=== PATIENT | male | born 1960 | race Caucasian/White ===

== ENCOUNTER 2022-01-19 10:31 | Inpatient (IN) | payer MEDICAID ==
[2022-01-12 11:51] LABS: BASOPHILS % (AUTO) 0.1 % (0-1); EOSINOPHILS % (AUTO) 0 % (0-6); LYMPHOCYTES # (AUTO) 1.4 X10'3 (1.1-4.8); LYMPHOCYTES % (AUTO) 23.6 % (21-51); MEAN CORPUSCULAR HGB CONC 32.6 g/dL (33.0-36.5); MEAN CORPUSCULAR VOLUME 76.8 FL (78-98); MEAN PLATELET VOLUME 8.2 FL (7.4-10.4); MONOCYTES # (AUTO) 0.6 X10'3 (0-0.9); NEUTROPHILS % (AUTO) 66.3 % (42-75); PRE OP HEMATOCRIT 41.6 % (42.0-52.0); PRE OP HEMOGLOBIN 13.5 g/dL (14.0-17.9); PRE OP PLATELET COUNT 260 X10'3 (140-440); RED BLOOD COUNT 5.42 X10'6 (4.70-6.10); RED CELL DISTRIBUTION WIDTH 15.5 % (11.5-14.5)
[2022-01-12 12:07] LABS: ALBUMIN/GLOBULIN RATIO 1.2 (1.1-1.5); ALKALINE PHOSPHATASE 76 IU/L (46-116); BLOOD UREA NITROGEN 12 MG/DL (7-18); BUN/CREATININE RATIO 12.6 (5.4-32.0); CHLORIDE 103 MMOL/L (99-107); CREATININE 0.95 MG/DL (0.60-1.10); PRE OP ALT 27 U/L (30-65); PRE OP ANION GAP 8 (8-16); PRE OP AST 17 U/L (10-37); PRE OP BILIRUB, TOTAL 0.5 MG/DL (0.0-1.0); PRE OP GLUCOSE 102 MG/DL (70-104); PRE OP POTASSIUM 4.2 MMOL/L (3.4-5.1); PRE OP SODIUM 138 MMOL/L (135-145); TOTAL PROTEIN 7.4 G/DL (6.4-8.2); eGFR 81 ML/MIN
[~2022-01-19] VITALS: Ht 180.3 cm; Wt 125.5 kg
[~2022-01-19 10:31] MED LIST: 5-HY100C PO; ASCO100089 PO; ASPI1POW35 PO; GABA PO; HYDR-3686 PO; KRATOM; LORA10TA7 PO; MONT10TA21 PO; THRE500T PO; TRAM50TA2 PO; TURM500C4 PO; ZINC COMPLEX PO; [UNRECOGNIZED DRUG - OTHER]
[2022-01-28 11:49] LABS: BASOPHILS % (AUTO) 0 % (0-1); EOSINOPHILS % (AUTO) 0 % (0-6); LYMPHOCYTES # (AUTO) 1.4 X10'3 (1.1-4.8); MEAN CORPUSCULAR HEMOGLOBIN 26.1 PG (27.0-31.0); MEAN CORPUSCULAR HGB CONC 33.1 g/dL (33.0-36.5); MEAN CORPUSCULAR VOLUME 78.8 FL (78-98); MEAN PLATELET VOLUME 8.3 FL (7.4-10.4); MONOCYTES # (AUTO) 0.5 X10'3 (0-0.9); MONOCYTES % (AUTO) 7.8 % (2-12); NEUTROPHILS # (AUTO) 4.7 X10'3 (1.8-7.7); NEUTROPHILS % (AUTO) 71.2 % (42-75); PRE OP HEMATOCRIT 44.8 % (42.0-52.0); PRE OP HEMOGLOBIN 14.8 g/dL (14.0-17.9); PRE OP PLATELET COUNT 248 X10'3 (140-440); RED BLOOD COUNT 5.68 X10'6 (4.70-6.10); RED CELL DISTRIBUTION WIDTH 16.5 % (11.5-14.5)
[2022-01-28 11:59] LABS: ALBUMIN 4.1 G/DL (3.4-5.0); ALBUMIN/GLOBULIN RATIO 1.2 (1.1-1.5); ALKALINE PHOSPHATASE 77 IU/L (46-116); BLOOD UREA NITROGEN 12 MG/DL (7-18); BUN/CREATININE RATIO 12.2 (5.4-32.0); CHLORIDE 105 MMOL/L (99-107); CREATININE 0.98 MG/DL (0.60-1.10); PRE OP ALT 20 U/L (30-65); PRE OP ANION GAP 5 (8-16); PRE OP AST 13 U/L (10-37); PRE OP BILIRUB, TOTAL 0.5 MG/DL (0.0-1.0); PRE OP GLUCOSE 102 MG/DL (70-104); PRE OP POTASSIUM 4.3 MMOL/L (3.4-5.1); PRE OP SODIUM 141 MMOL/L (135-145); TOTAL CARBON DIOXIDE 30.8 MMOL/L (24-32); TOTAL PROTEIN 7.6 G/DL (6.4-8.2); eGFR 78 ML/MIN
[2022-02-01] MEDS ORDERED: DICL20GE TOP (10:47)
[2022-02-01] MEDS ORDERED: ACET-2778 PO (10:47)
[2022-02-01] MEDS ORDERED: BIOT1TAB PO (10:53)
[2022-02-01] MEDS ORDERED: CYAN25006 SL (10:55)
[2022-02-02] VITALS (21 sets, daily range): BP systolic 113–155; BP diastolic 55–93
[2022-02-02] MEDS ORDERED: ringers solution, lacted 1,000 ML IV SCH ×2 (05:00→08:05)
[2022-02-02] MEDS ORDERED: vancomycin 1,500 MG in NS 300ml IV soln IV ONE (05:30)
[2022-02-02] MEDS ORDERED: ceFAZolin inj. 3,000 MG in normal saline 100ml IV soln 100 ML IV ONE (05:30)
[2022-02-02] MEDS ORDERED: tranexamic acid inj. 1,000 MG in 0.7% saline 100 ML PMX IV ONE (05:30)
[2022-02-02] MEDS ORDERED: famotidine 20mg tablet PO ONE (05:30)
--- NOTE | 2022-02-02 06:00 | NUR ---
PATIENT PREPPED FOR SURGERY, IV STARTED WITHOUT DIFFICULTY. SPECIAL PAPER FROM BLOOD BANK PLACED IN CHART IN REFERENCE TO PTS ANTIBODIES. ANESTHESIA AND NURSE NOTIFIED. PT ARRIVED IN A WHEELCHAIR, AMBULATED TO STRETCHER WITH DIFFICULTY. HE STATES PAIN IS SEVERE 8 ON 1-10 SCALE WITH MOVEMENT, WHEN HE IS LYING IN BED AND NOT MOVING PAIN IS GONE. PT TAKES MULTIPLE SUPPLEMENTS, HAS STOPPED FOR ONE WEEK PRIOR TO SURGERY. BILATERAL LOWER EXTREMITIES ARE PINK WARM AND DRY, BILATERAL PEDAL PULSES ARE PALPABLE AND MARKED, SENSATION IS INTACT IN BOTH LEGS. PT STATES HE USED THE SPECIAL SOAP TO SHOWER WITH FOR 5 DAYS, HE AND HIS USED THE MURPUROCIN OINTMENT IN THEIR NOSES FOR THE PAST 5 DAYS. PT STATES HE DID NOT WATCH THE CVC BECAUSE HE HAS HIS LEFT HIP DONE AND KNOWS WHAT WILL HAPPEN. REITERATED THE IMPORTANCE OF WATCHING IT AFTER HE GETS HOME. PT INSTRUCTED IN USING THE INCENTIVE SPIROMETRY AND WAS ABLE TO RETURN DEMONSTRATE THE TECHNIQUE. PT IS VERY ANXIOUS, IS AT BEDSIDE VANCOMYCIN INFUSING WITH NO SIGNS OF REACTIONS.
[2022-02-02] MEDS ORDERED: vancomycin 1,000mg inj ONE (07:09)
[2022-02-02] MEDS ORDERED: tetracaine 1% (10mg/ml) pres. free inj. ONE (07:40)
[2022-02-02] MEDS ORDERED: fentaNYL/PF 50MCG/1 ML 2ML syringe ONE (07:44)
[2022-02-02] MEDS ORDERED: MIDAZolam 1 MG/ML 5ML VIAL ONE (07:44)
[2022-02-02] MEDS ORDERED: propofol inj 20 ML IV ONE ×2 (07:48)
[2022-02-02] MEDS ORDERED: ketorolac trometh. 30mg/ml inj. ONE (07:54)
[2022-02-02] MEDS ORDERED: cloNIDine hcl/PF 100mcg/ml inj ONE (07:54)
[2022-02-02] MEDS ORDERED: ROPIVAcaine 0.5% (5mg/ml) 30ml vial ONE (07:54)
[2022-02-02] MEDS ORDERED: epiNEPHrine 1 mg/ml inj ONE (07:54)
[2022-02-02] MEDS ORDERED: morphine 2 MG/ML inj. syringe IV PRN ×2 (08:05→14:50)
[2022-02-02] MEDS ORDERED: ondansetron/PF 4mg/2ml inj IV PRN ×2 (08:05→11:50)
[2022-02-02] MEDS ORDERED: meperidine/PF 25mg/ml syringe IV PRN ×3 (08:05)
[2022-02-02] MEDS ORDERED: proCHLORperazine 10 MG/2 ml inj IV PRN (08:05)
[2022-02-02] MEDS ORDERED: morphine 4 MG/ML inj SYRINge IV PRN (08:05)
--- NOTE | 2022-02-02 11:16 | NUR ---
Received from OR via SURGICAL BED /S [facility] , accompanied by Anesthesiologist NICOLETTE and report given by Anesthesiolgist. PATIENT WITH 18G PIV IN RIGHT HAND RUNNING LR AT 100. DENIES PAIN, SENSATION LEVEL AT T9 AT THIS TIME. + DORSALIS PEDIS PRESENT. PATIENT WITH SCDS BILATERALLY. VSS. DEZ LIU FOR COMFORT. Addendum: 02/02/22 at 1127 by Seferino Borjas RN, RN Amended: Links added.
[2022-02-02] MEDS ORDERED: magnesium hydroxide 30ml (MOM) UD suspension PO PRN (11:50)
[2022-02-02] MEDS ORDERED: diphenhydrAMINE 25mg capsule PO PRN ×2 (11:50)
[2022-02-02] MEDS ORDERED: HYDROmorphone inj. 0.5 MG/0.5 ML DISP.SYRIN IV PRN (11:50)
[2022-02-02] MEDS ORDERED: acetaminophen 325mg tablet PO PRN (11:50)
[2022-02-02] MEDS ORDERED: oxyCODONE IR 5mg (immed. release) tablet PO PRN ×2 (11:50)
[2022-02-02] MEDS ORDERED: tranexamic acid inj. 1,000 MG in normal saline 100ml IV soln 100 ML IV ONE (11:50)
[2022-02-02] MEDS ORDERED: HYDROmorphone 1 mg/ml syringe IV PRN (11:50)
[2022-02-02] MEDS ORDERED: naloxone 0.4 mg/ml inj IV PRN (11:50)
[2022-02-02] MEDS ORDERED: bisacodyl 10mg suppository rectal RC PRN (11:50)
--- NOTE | 2022-02-02 12:29 | NUR ---
received report from FREDY Gentile. Awaiting patient transfer to room 4024B.
--- NOTE | 2022-02-02 12:45 | NUR ---
Received patient to room 4024B accompanied by FREDY Gentile and spouse. Patient alert and oriented and stated starting to have sensation in right foot/hip and having pain. Will give dilaudid as ordered. Right hip with hip wrap, island dressing CDI, cool powder pack in place. Patient has hooper catheter draining to gravity with clear, yellow urine. Oriented to room and call light. Call light placed within patients reach. Will continue to monitor.
--- NOTE | 2022-02-02 12:46 | NUR ---
Report called to receiving nurse. Transferred via SURGICAL BED WITH ONE BAG OF Belongings. Special Issues communicated to receiving nurse JOSE DANIEL. VSS. PAIN AT 3/10 IN HIP/ FOOT AREA. ADVISED JOSE OF THIS AND TO MEDICATE NEEDED. VSS. PATIENT BED LOW AND CALL LIGHT PRESENT. LABELED BAG OF BELONGING IN ROOM 402 Addendum: 02/02/22 at 1251 by Seferino Borjas RN, RN Amended: Links added.
[2022-02-02] MEDS ORDERED: ketorolac trometh. 30mg/ml inj. IV ONE (14:00)
[2022-02-02] MEDS: gabapentin 300mg capsule PO SCH ×2 (14:08→20:22)
[2022-02-02] MEDS: acetaminophen 325mg tablet PO SCH ×2 (14:08→20:00)
[2022-02-02] MEDS ORDERED: morphine 4 MG/ML inj SYRINge IV STA (14:47)
--- NOTE | 2022-02-02 14:49 | NUR ---
Reina Elkins in to seep patient.
[2022-02-02] MEDS ORDERED: tranexamic acid inj. 1,000 MG in normal saline 100ml IV soln 90 ML IV ONE (15:00)
[2022-02-02] MEDS: ceFAZolin/D5W- 1GM premix 50 ML IV SCH (16:00)
[2022-02-02] MEDS: HYDROcodone/acetaminophen 10/325mg tab PO PRN ×2 (17:24→22:29)
--- NOTE | 2022-02-02 18:44 | NUR ---
Patient in room ORTHO 4024. I have received report from Alicia DANIEL and had the opportunity to ask questions and assume patient care.
[2022-02-02] MEDS: potassium cl 20mEq in 1/2 NS 1,000 ML IV SCH ×2 (19:50→22:30)
[2022-02-02] MEDS ORDERED: vancomycin/NS 1 GM ADD-VANTAGE 250 ML IV SCH (20:00)
[2022-02-02] MEDS: sennosides 8.6mg tablet PO SCH (20:22)
[2022-02-02] MEDS: morphine 2 MG/ML inj. syringe IV PRN (20:23)
[2022-02-03] MEDS: ceFAZolin/D5W- 1GM premix 50 ML IV SCH (00:29)
[2022-02-03] MEDS: acetaminophen 325mg tablet PO SCH ×2 (01:57→08:00)
[2022-02-03] MEDS: HYDROcodone/acetaminophen 10/325mg tab PO PRN ×5 (01:59→23:19)
[2022-02-03 02:00] VITALS: BP 151/73
[2022-02-03] MEDS: potassium cl 20mEq in 1/2 NS 1,000 ML IV SCH ×3 (05:38→19:15)
[2022-02-03 06:00] VITALS: BP 143/60
--- NOTE | 2022-02-03 06:06 | NUR ---
Problems reprioritized. Patient report given, questions answered & plan of care reviewed with Sheila DANIEL.
--- NOTE | 2022-02-03 06:51 | NUR ---
Patient in room ORTHO 4024. I have received report from FREDY Feng and had the opportunity to ask questions and assume patient care.
[2022-02-03 07:40] LABS: BASOPHILS % (AUTO) 0.3 % (0-1); EOSINOPHILS % (AUTO) 0 % (0-6); HEMOGLOBIN 12.3 g/dl (14.0-17.9); LYMPHOCYTES # (AUTO) 1.5 X10'3 (1.1-4.8); LYMPHOCYTES % (AUTO) 17.4 % (21-51); MEAN CORPUSCULAR HEMOGLOBIN 25.5 PG (27.0-31.0); MEAN CORPUSCULAR HGB CONC 32.3 g/dL (33.0-36.5); MEAN CORPUSCULAR VOLUME 79.1 FL (78-98); MEAN PLATELET VOLUME 8.1 FL (7.4-10.4); MONOCYTES # (AUTO) 0.9 X10'3 (0-0.9); MONOCYTES % (AUTO) 9.9 % (2-12); NEUTROPHILS # (AUTO) 6.3 X10'3 (1.8-7.7); NEUTROPHILS % (AUTO) 72.4 % (42-75); PLATELET COUNT 175 X10'3 (140-440); RED CELL DISTRIBUTION WIDTH 16.8 % (11.5-14.5); WHITE BLOOD COUNT 8.7 X10'3 (4.5-11.0)
[2022-02-03 08:03] LABS: ANION GAP 2 (8-16); CHLORIDE 102 MMOL/L (99-107); POTASSIUM 4.3 MMOL/L (3.5-5.1); SODIUM 134 MMOL/L (135-145); TOTAL CARBON DIOXIDE 29.9 MMOL/L (24-32)
[2022-02-03] MEDS: gabapentin 300mg capsule PO SCH ×3 (08:11→20:14)
[2022-02-03] MEDS: enoxaparin 40mg/0.4ml syringe SQ SCH (08:13)
[2022-02-03] MEDS: morphine 2 MG/ML inj. syringe IV PRN (08:14)
[2022-02-03] MEDS ORDERED: morphine 2 MG/ML inj. syringe IV PRN (08:45)
[2022-02-03 10:00] VITALS: BP 166/60
[2022-02-03 14:00] VITALS: BP 153/70
[2022-02-03 18:00] VITALS: BP 148/70
[2022-02-03] MEDS: celeCOXIB 100mg capsule PO SCH (19:12)
--- NOTE | 2022-02-03 19:26 | NUR ---
Problems reprioritized. Patient report given, questions answered & plan of care reviewed with FREDY Feng.
[2022-02-03] MEDS: sennosides 8.6mg tablet PO SCH (20:15)
[2022-02-03 22:00] VITALS: BP 143/79
[2022-02-04] MEDS: HYDROcodone/acetaminophen 10/325mg tab PO PRN ×6 (05:03→22:48)
[2022-02-04 05:57] LABS: BASOPHILS % (AUTO) 0 % (0-1); EOSINOPHILS % (AUTO) 0 % (0-6); HEMATOCRIT 37.9 % (42.0-52.0); HEMOGLOBIN 12.5 g/dl (14.0-17.9); LYMPHOCYTES # (AUTO) 1.3 X10'3 (1.1-4.8); LYMPHOCYTES % (AUTO) 14.3 % (21-51); MEAN CORPUSCULAR HEMOGLOBIN 26.2 PG (27.0-31.0); MEAN CORPUSCULAR HGB CONC 33.1 g/dL (33.0-36.5); MEAN CORPUSCULAR VOLUME 79.3 FL (78-98); MONOCYTES # (AUTO) 0.9 X10'3 (0-0.9); MONOCYTES % (AUTO) 10.4 % (2-12); NEUTROPHILS # (AUTO) 6.8 X10'3 (1.8-7.7); NEUTROPHILS % (AUTO) 75.3 % (42-75); PLATELET COUNT 170 X10'3 (140-440); RED BLOOD COUNT 4.77 X10'6 (4.70-6.10); RED CELL DISTRIBUTION WIDTH 16.5 % (11.5-14.5)
[2022-02-04 06:00] VITALS: BP 152/69
--- NOTE | 2022-02-04 06:26 | NUR ---
Problems reprioritized. Patient report given, questions answered & plan of care reviewed with Sheila DANIEL.
--- NOTE | 2022-02-04 06:43 | NUR ---
Patient in room ORTHO 4024. I have received report from FREDY Feng and had the opportunity to ask questions and assume patient care.
[2022-02-04] MEDS: gabapentin 300mg capsule PO SCH ×3 (09:35→20:09)
[2022-02-04] MEDS: celeCOXIB 100mg capsule PO SCH ×2 (09:35→20:09)
[2022-02-04] MEDS: enoxaparin 40mg/0.4ml syringe SQ SCH (09:36)
[2022-02-04 10:00] VITALS: BP 137/67
--- NOTE | 2022-02-04 11:19 | NUR ---
Joint surgery consult: Pt s/p R hip surgery this admit. Pt/SO seen by ITALO for written/verbal high protein ed w/ RD contact information provided. ITALO encouraged pt/SO to contact dietitian's office if further questions/concerns. Addendum: 02/04/22 at [address] Amended: Links added.
[2022-02-04] MEDS ORDERED: acetaminophen 325mg tablet PO PRN (11:50)
[2022-02-04 14:00] VITALS: BP 174/69
--- NOTE | 2022-02-04 17:00 | NUR ---
Patient walked with PT. The evaluation from PT was that they need to work with the patient one more time in the morning and then he can be discharged.
[2022-02-04 18:00] VITALS: BP 125/70
--- NOTE | 2022-02-04 18:57 | NUR ---
Problems reprioritized. Patient report given, questions answered & plan of care reviewed with FREDY Feng.
[2022-02-04] MEDS: sennosides 8.6mg tablet PO SCH (20:09)
[2022-02-04 22:00] VITALS: BP 120/64
[2022-02-05] MEDS: HYDROcodone/acetaminophen 10/325mg tab PO PRN ×2 (03:28→07:29)
[2022-02-05 06:00] VITALS: BP 147/77
[2022-02-05 06:22] LABS: BASOPHILS % (AUTO) 0 % (0-1); EOSINOPHILS % (AUTO) 0 % (0-6); HEMATOCRIT 34.5 % (42.0-52.0); HEMOGLOBIN 11.5 g/dl (14.0-17.9); LYMPHOCYTES # (AUTO) 1.3 X10'3 (1.1-4.8); LYMPHOCYTES % (AUTO) 17.4 % (21-51); MEAN CORPUSCULAR HEMOGLOBIN 26.2 PG (27.0-31.0); MEAN CORPUSCULAR HGB CONC 33.3 g/dL (33.0-36.5); MEAN CORPUSCULAR VOLUME 78.8 FL (78-98); MEAN PLATELET VOLUME 8.6 FL (7.4-10.4); MONOCYTES # (AUTO) 0.8 X10'3 (0-0.9); NEUTROPHILS # (AUTO) 5.4 X10'3 (1.8-7.7); NEUTROPHILS % (AUTO) 71.6 % (42-75); PLATELET COUNT 166 X10'3 (140-440); RED BLOOD COUNT 4.37 X10'6 (4.70-6.10); RED CELL DISTRIBUTION WIDTH 16.7 % (11.5-14.5); WHITE BLOOD COUNT 7.5 X10'3 (4.5-11.0)
--- NOTE | 2022-02-05 06:26 | NUR ---
Problems reprioritized. Patient report given, questions answered & plan of care reviewed with Sheila DANIEL.
--- NOTE | 2022-02-05 07:02 | NUR ---
Patient in room ORTHO 4024. I have received report from FREDY Feng and had the opportunity to ask questions and assume patient care.
[2022-02-05] MEDS: enoxaparin 40mg/0.4ml syringe SQ SCH (07:27)
[2022-02-05] MEDS: gabapentin 300mg capsule PO SCH (07:27)
[2022-02-05] MEDS: celeCOXIB 100mg capsule PO SCH (07:27)
[2022-02-05 10:00] VITALS: BP 161/73
--- NOTE | 2022-02-05 12:41 | NUR ---
Patient was discharged at 1140 with instructions and verbalizing understanding of instructions. He left in a wheelchair accompanied by nursing staff and family going home via private vehicle. All lines and tubes including intact IV cannula have been removed. Education on medications has been provided and all questions answered. Patient already has a follow up appointment set up with DR. Santo. Patient is stable and appropriate for discharge.
== END 2022-02-05 11:40 | disposition home or self-care (01) | DRG 324 ==
LOC: PAS IN 02-02 05:27 → ORTHO 4S 02-02 12:45
PROVIDERS: ADMIT Orthopaedic Surgery; ATTEND Orthopaedic Surgery
PROC: 0SR903A Replacement of Right Hip Joint with Ceramic Synthetic Substitute, Uncemented, Open Approach (ICD-10-PCS; principal; 2022-02-02 08:07)
DX: M16.11 Unilateral primary osteoarthritis, right hip (principal); U07.1 COVID-19; Z79.899 Other long term (current) drug therapy; Z91.013 Allergy to seafood
CPT/HCPCS: 36415; 72170; 80051; 80053; 82948; 85025; 86870; 86880; 86885; 86900; 86901; 86902; 86905; 86920; 86922; 87081; 97110; 97116; 97161; 97530; A4215; A4618; A6449; A7000; C1758; C1776; G0378; J0171; J0690; J0735; J1170; J1650; J1885; J2250; J2270; J2704; J2795; J3010; J3370; J3480; J3490; J7040; J7120; Q0163; U0003; U0005

== ENCOUNTER 2022-08-17 18:17 | Inpatient (IN) | payer MEDICAID ==
[~2022-08-17] VITALS: Ht 180.3 cm; Wt 122.7 kg
[~2022-08-17 18:17] MED LIST changes: +ACET-2778 PO; +BIOT1TAB PO; +CYAN25006 SL; +DICL20GE TOP
[2022-08-17] MEDS ORDERED: acetaminophen 325mg tablet PO STA (19:08)
[2022-08-17] MEDS ORDERED: normal saline 1000ml 1,000 ML IV STA (19:08)
[2022-08-17] MEDS ORDERED: ondansetron/PF 4mg/2ml inj IV STA (19:08)
[2022-08-17 19:33] LABS: BASOPHILS % (AUTO) 0.1 % (0-1); EOSINOPHILS % (AUTO) 0 % (0-6); HEMATOCRIT 43.1 % (42.0-52.0); HEMOGLOBIN 14.7 g/dl (14.0-17.9); LYMPHOCYTES # (AUTO) 0.9 X10'3 (1.1-4.8); LYMPHOCYTES % (AUTO) 8.4 % (21-51); MEAN CORPUSCULAR HEMOGLOBIN 28.6 PG (27.0-31.0); MEAN CORPUSCULAR HGB CONC 34.2 g/dL (33.0-36.5); MEAN CORPUSCULAR VOLUME 83.6 FL (78-98); MEAN PLATELET VOLUME 8.3 FL (7.4-10.4); MONOCYTES # (AUTO) 0.9 X10'3 (0-0.9); MONOCYTES % (AUTO) 8.4 % (2-12); NEUTROPHILS # (AUTO) 8.5 X10'3 (1.8-7.7); NEUTROPHILS % (AUTO) 83.1 % (42-75); PLATELET COUNT 186 X10'3 (140-440); RED BLOOD COUNT 5.16 X10'6 (4.70-6.10); RED CELL DISTRIBUTION WIDTH 16.7 % (11.5-14.5); WHITE BLOOD COUNT 10.2 X10'3 (4.5-11.0)
[2022-08-17] MEDS ORDERED: dexamethasone sod phosphate 10mg/ml inj IV STA (19:39)
[2022-08-17] MEDS ORDERED: normal saline 1000ML IV soln IV ONE (19:45)
[2022-08-17 19:49] LABS: ALANINE AMINOTRANSFERASE 61 U/L (12-78); ALBUMIN 3.3 G/DL (3.4-5.0); ALBUMIN/GLOBULIN RATIO 0.7 (1.1-1.5); ALKALINE PHOSPHATASE 80 IU/L (46-116); ANION GAP 10 (8-16); ASPARTATE AMINO TRANSFERASE 54 U/L (10-37); BILIRUBIN,TOTAL 1.4 MG/DL (0.1-1.0); BLOOD UREA NITROGEN 12 MG/DL (7-18); BUN/CREATININE RATIO 13.3 (5.4-32.0); CALCIUM 9.4 MG/DL (8.5-10.1); CHLORIDE 97 MMOL/L (99-107); GLUCOSE 130 MG/DL (70-104); POTASSIUM 3.1 MMOL/L (3.5-5.1); SODIUM 136 MMOL/L (135-145); TOTAL CARBON DIOXIDE 28.7 MMOL/L (24-32); eGFR 86 ML/MIN
[2022-08-17] MEDS ORDERED: HYDROcodone/acetaminophen 5mg/325mg tablet PO PRN (22:15)
[2022-08-17] MEDS ORDERED: mag hydrox/Alum hydrox/simeth 30ml oral suspension PO PRN (22:15)
[2022-08-17] MEDS ORDERED: HYDROcodone/acetaminophen 10/325mg tab PO PRN (22:15)
[2022-08-17] MEDS ORDERED: morphine 2 MG/ML inj. syringe IV PRN ×2 (22:15)
[2022-08-17] MEDS: normal saline 1000ml 1,000 ML IV SCH (22:15)
[2022-08-17] MEDS ORDERED: magnesium hydroxide 30ml (MOM) UD suspension PO PRN (22:15)
[2022-08-17] MEDS ORDERED: acetaminophen 325mg tablet PO PRN (22:15)
[2022-08-17] MEDS ORDERED: ondansetron/PF 4mg/2ml inj IV PRN (22:15)
[2022-08-17 22:22] LABS: CLARITY,URINE CLEAR (Clear); COLOR,URINE YELLOW (Yellow); GLUCOSE, URINE NEGATIVE (Neg); KETONES,URINE 40 mg/dl (Neg); LEUKOCYTE ESTERASE ,URINE NEGATIVE (Neg); NITRITES, URINE NEGATIVE (Neg); OCCULT BLOOD,URINE TRACE-INTACT (Neg); PH,URINE 6.5 (4.8-8.0); PROTEIN,URINE 100 mg/dl (Neg)
[2022-08-17 22:24] LABS: UA COLLECTION TYPE NON-SPECIFIED
[2022-08-17 22:28] LABS: BACTERIA,URINE FEW /HPF (Neg); RBC,URINE 0-2 /HPF (0-2); SQUAMOUS EPITHELIAL CELL,UR FEW /LPF (FEW); WBC,URINE 0-4 /HPF (0-4)
[2022-08-17 22:29] LABS: FINE GRANULAR CAST 0-3 /LPF (NEGATIVE)
[2022-08-18] MEDS ORDERED: vancomycin/NS 1 GM ADD-VANTAGE 250 ML IV SCH (00:10)
[2022-08-18] MEDS ORDERED: levoFLOXACIN-Levaquin 750MG/D5 150 ML IV SCH (00:10)
[2022-08-18] MEDS ORDERED: oseltamivir phos 75mg capsule PO STA (00:16)
--- NOTE | 2022-08-18 04:16 | NUR ---
PT PLACED ONTO A HOSPITAL BED.
[2022-08-18 07:00] VITALS: BP 152/82
[2022-08-18 07:42] LABS: BASOPHILS % (AUTO) 0.1 % (0-1); EOSINOPHILS % (AUTO) 0 % (0-6); HEMATOCRIT 42.4 % (42.0-52.0); HEMOGLOBIN 14.4 g/dl (14.0-17.9); LYMPHOCYTES # (AUTO) 0.5 X10'3 (1.1-4.8); LYMPHOCYTES % (AUTO) 5.4 % (21-51); MEAN CORPUSCULAR HEMOGLOBIN 28.6 PG (27.0-31.0); MEAN CORPUSCULAR VOLUME 84.3 FL (78-98); MEAN PLATELET VOLUME 8.9 FL (7.4-10.4); MONOCYTES # (AUTO) 0.5 X10'3 (0-0.9); MONOCYTES % (AUTO) 5.4 % (2-12); NEUTROPHILS # (AUTO) 8.4 X10'3 (1.8-7.7); NEUTROPHILS % (AUTO) 89.1 % (42-75); PLATELET COUNT 197 X10'3 (140-440); RED BLOOD COUNT 5.03 X10'6 (4.70-6.10); RED CELL DISTRIBUTION WIDTH 16.9 % (11.5-14.5); WHITE BLOOD COUNT 9.4 X10'3 (4.5-11.0)
[2022-08-18 07:50] LABS: ALBUMIN 2.8 G/DL (3.4-5.0); ANION GAP 7 (8-16); BLOOD UREA NITROGEN 13 MG/DL (7-18); BUN/CREATININE RATIO 13.3 (5.4-32.0); CALCIUM 8.9 MG/DL (8.5-10.1); CHLORIDE 100 MMOL/L (99-107); CREATININE 0.98 MG/DL (0.60-1.10); GLUCOSE 156 MG/DL (70-104); POTASSIUM 3.5 MMOL/L (3.5-5.1); SODIUM 139 MMOL/L (135-145); TOTAL CARBON DIOXIDE 31.6 MMOL/L (24-32); eGFR 78 ML/MIN
[2022-08-18] MEDS: docusate sod 100mg capsule PO SCH ×2 (08:00→19:22)
[2022-08-18] MEDS: normal saline 1000ml 1,000 ML IV SCH ×2 (08:36→19:21)
[2022-08-18] MEDS ORDERED: albuterol 2.5 MG/3 ML nebule NEB PRN (08:40)
[2022-08-18 11:00] VITALS: BP 158/76
[2022-08-18] MEDS: oseltamivir phos 75mg capsule PO SCH ×2 (12:27→19:25)
[2022-08-18] MEDS: VANCOmycin 1250MG/NS 250ml Bag 250 ML IV SCH ×2 (12:27→23:34)
[2022-08-18] MEDS ORDERED: ACET-2778 PO (13:25)
[2022-08-18] MEDS ORDERED: LORA10TA7 PO (13:25)
[2022-08-18] MEDS ORDERED: HYDR-3686 PO (13:25)
[2022-08-18] MEDS ORDERED: TRAM50TA2 PO (13:25)
[2022-08-18] MEDS ORDERED: DICL20GE TOP (13:25)
[2022-08-18] MEDS ORDERED: FERR-106 PO (13:26)
[2022-08-18] MEDS: acetaminophen 325mg tablet PO PRN ×2 (14:54→23:31)
[2022-08-18 15:00] VITALS: BP 149/78
[2022-08-18] MEDS: ipratropium/albuterol 3ml nebule NEB PRN ×2 (16:28→23:30)
[2022-08-18 18:00] VITALS: BP 153/69
--- NOTE | 2022-08-18 18:07 | NUR ---
Patient in room PCU 3020. I have received report from FREDY Paul and had the opportunity to ask questions and assume patient care.
[2022-08-18] MEDS ORDERED: enoxaparin 40mg/0.4ml syringe SUBCUT SCH (20:00)
[2022-08-18] MEDS: benzonatate 100mg capsule PO PRN (20:59)
[2022-08-18] MEDS ORDERED: temazepam 15mg capsule PO ONE (21:00)
[2022-08-18 22:00] VITALS: BP 152/77
[2022-08-19] MEDS ORDERED: levoFLOXACIN-Levaquin 750MG/D5 150 ML IV SCH
[2022-08-19 02:00] VITALS: BP 138/71
[2022-08-19] MEDS: benzonatate 100mg capsule PO PRN ×2 (03:01→09:03)
[2022-08-19 06:00] VITALS: BP 163/86
--- NOTE | 2022-08-19 06:20 | NUR ---
Problems reprioritized. Patient report given, questions answered & plan of care reviewed with FREDY Romero.
--- NOTE | 2022-08-19 06:22 | NUR ---
Patient in room PCU 3020. I have received report from FREDY Watson and had the opportunity to ask questions and assume patient care.
[2022-08-19] MEDS: docusate sod 100mg capsule PO SCH (07:14)
[2022-08-19 07:15] VITALS: BP 157/84
[2022-08-19] MEDS: oseltamivir phos 75mg capsule PO SCH (07:15)
[2022-08-19 07:21] LABS: BASOPHILS % (AUTO) 0.1 % (0-1); EOSINOPHILS % (AUTO) 0 % (0-6); HEMATOCRIT 38.5 % (42.0-52.0); HEMOGLOBIN 13.3 g/dl (14.0-17.9); LYMPHOCYTES % (AUTO) 8.8 % (21-51); MEAN CORPUSCULAR HEMOGLOBIN 28.9 PG (27.0-31.0); MEAN CORPUSCULAR HGB CONC 34.6 g/dL (33.0-36.5); MEAN CORPUSCULAR VOLUME 83.5 FL (78-98); MONOCYTES % (AUTO) 8.8 % (2-12); NEUTROPHILS # (AUTO) 8.9 X10'3 (1.8-7.7); NEUTROPHILS % (AUTO) 82.3 % (42-75); PLATELET COUNT 204 X10'3 (140-440); RED BLOOD COUNT 4.61 X10'6 (4.70-6.10); RED CELL DISTRIBUTION WIDTH 16.8 % (11.5-14.5); WHITE BLOOD COUNT 10.8 X10'3 (4.5-11.0)
[2022-08-19 07:38] LABS: ALBUMIN 2.5 G/DL (3.4-5.0); ANION GAP 7 (8-16); BLOOD UREA NITROGEN 16 MG/DL (7-18); BUN/CREATININE RATIO 18.6 (5.4-32.0); CALCIUM 8.5 MG/DL (8.5-10.1); CHLORIDE 103 MMOL/L (99-107); CREATININE 0.86 MG/DL (0.60-1.10); GLUCOSE 130 MG/DL (70-104); POTASSIUM 3.2 MMOL/L (3.5-5.1); SODIUM 140 MMOL/L (135-145); TOTAL CARBON DIOXIDE 29.9 MMOL/L (24-32); eGFR > 90 ML/MIN
[2022-08-19] MEDS: normal saline 1000ml 1,000 ML IV SCH (07:54)
--- NOTE | 2022-08-19 07:59 | NUR ---
paged Dr. Liu re: Pt's K was 3.2 - does not have PRN replacement orders. Also he's complaining of a very strong, painful, persistent cough, can we do robitussin with codeine? alber zhao ineffective.
[2022-08-19] MEDS ORDERED: potassium Cl 20 mEq SR tablet PO PRN ×2 (08:05)
[2022-08-19] MEDS ORDERED: magnesium 4gm in 100ml NS 100 ML IV PRN (08:05)
[2022-08-19] MEDS ORDERED: guaiFENesin/codeine phos 10ml UD oral syrup PO PRN (08:05)
[2022-08-19] MEDS ORDERED: magnesium 2GM in 50ml NS 50 ML IV PRN (08:05)
[2022-08-19] MEDS ORDERED: potassium Cl 40MEQ/1/2NS 520ml 520 ML IV PRN (08:05)
[2022-08-19] MEDS ORDERED: TAM75C PO (10:10)
[2022-08-19] MEDS ORDERED: POTA-207 PO (10:10)
[2022-08-19] MEDS ORDERED: CODE10LI PO (10:10)
[2022-08-19] MEDS ORDERED: LEVO750T68 PO (10:10)
[2022-08-19] MEDS: VANCOmycin 1250MG/NS 250ml Bag 250 ML IV SCH (11:07)
--- NOTE | 2022-08-19 13:00 | NUR ---
pt discharged home in stable condition via wheelchair to family waiting in lobby. discharge instructions and education reviewed with pt. IV and tele discontinued.
[2022-08-19] MEDS ORDERED: K and/or MAG REPLACEMENT MC SCH (20:00)
[2022-08-19] MEDS ORDERED: VANCOMYCIN LEVEL IV ONE (23:30)
== END 2022-08-19 12:43 | disposition home or self-care (01) | DRG 133 ==
LOC: ER 18:17 → ED HOLD 22:18 → PCU 3S 08-18 07:03
PROVIDERS: ADMIT Internal Medicine; ATTEND Family Medicine
DX: J96.01 Acute respiratory failure with hypoxia (principal); J10.08 Influenza due to other identified influenza virus with other specified pneumonia; Z96.643 Presence of artificial hip joint, bilateral; J12.9 Viral pneumonia, unspecified; E87.6 Hypokalemia; Z20.822 Contact with and (suspected) exposure to COVID-19; M19.90 Unspecified osteoarthritis, unspecified site; Z83.3 Family history of diabetes mellitus; Z79.899 Other long term (current) drug therapy; Z91.018 Allergy to other foods
CPT/HCPCS: 36415; 71045; 80048; 80053; 81001; 83605; 83880; 84145; 84484; 85025; 87040; 87070; 87081; 87502; 87503; 87811; 93005; 94640; 94760; 96361; 96374; 96375; 99285; A4615; A6258; G0378; J1100; J1650; J1956; J2405; J3370; J7030

== ENCOUNTER 2023-06-26 08:54 | Inpatient (IN) | payer MEDICAID ==
[2023-06-19 15:59] LABS: BASOPHILS % (AUTO) 0.1 % (0-1); EOSINOPHILS % (AUTO) 0 % (0-6); LYMPHOCYTES # (AUTO) 1.9 X10'3 (1.1-4.8); LYMPHOCYTES % (AUTO) 21.5 % (21-51); MEAN CORPUSCULAR HEMOGLOBIN 30.8 PG (27.0-31.0); MEAN CORPUSCULAR HGB CONC 34.7 g/dL (33.0-36.5); MEAN PLATELET VOLUME 8.5 FL (7.4-10.4); MONOCYTES # (AUTO) 0.7 X10'3 (0-0.9); MONOCYTES % (AUTO) 7.4 % (2-12); NEUTROPHILS # (AUTO) 6.2 X10'3 (1.8-7.7); PRE OP HEMATOCRIT 47.8 % (42.0-52.0); PRE OP HEMOGLOBIN 16.6 g/dL (14.0-17.9); PRE OP PLATELET COUNT 202 X10'3 (140-440); PRE OP WHITE BLOOD COUNT 8.8 10'3 (4.8-10.8); RED BLOOD COUNT 5.37 X10'6 (4.70-6.10); RED CELL DISTRIBUTION WIDTH 13.6 % (11.5-14.5)
[2023-06-19 16:22] LABS: ALBUMIN 4.2 G/DL (3.4-5.0); ALBUMIN/GLOBULIN RATIO 1.3 (1.1-1.5); ALKALINE PHOSPHATASE 74 IU/L (46-116); BLOOD UREA NITROGEN 14 MG/DL (7-18); BUN/CREATININE RATIO 15.4 (10.0-20.0); CALCIUM 9.4 MG/DL (8.5-10.1); CHLORIDE 104 MMOL/L (99-107); CREATININE 0.91 MG/DL (0.60-1.10); PRE OP ALT 41 U/L (30-65); PRE OP ANION GAP 6 (8-16); PRE OP AST 25 U/L (10-37); PRE OP BILIRUB, TOTAL 0.7 MG/DL (0.0-1.0); PRE OP GLUCOSE 108 MG/DL (70-104); PRE OP SODIUM 137 MMOL/L (135-145); TOTAL CARBON DIOXIDE 27.3 MMOL/L (24-32); TOTAL PROTEIN 7.4 G/DL (6.4-8.2); eGFR 85 ML/MIN
[~2023-06-26] VITALS: Ht 180.3 cm; Wt 131.0 kg
[2023-06-26] VITALS (29 sets, daily range): BP systolic 95–147; BP diastolic 47–86; PULSE 48–96; RESP 9–20; TEMP 96.4–98.4; O2SAT 94–100
[~2023-06-26 08:54] MED LIST changes: -5-HY100C PO; -ASCO100089 PO; -ASPI1POW35 PO; -BIOT1TAB PO; -CYAN25006 SL; +FERR-106 PO; -GABA PO; -KRATOM; +MONT-40 PO; -MONT10TA21 PO; -THRE500T PO; -TURM500C4 PO; -ZINC COMPLEX PO; -[UNRECOGNIZED DRUG - OTHER]; +ceFAZolin inj. 3,000 MG in normal saline 100ml IV soln 100 ML IV ONE; +famotidine 20mg tablet PO ONE; +ringers solution, lacted 1,000 ML IV SCH; +tranexamic acid 650mg tablet PO ONE; +vancomycin 1,500 MG in NS 300ml IV soln IV ONE
[2023-06-26] MEDS ORDERED: tetracaine 1% (10mg/ml) pres. free inj. ONE (12:23)
[2023-06-26] MEDS ORDERED: fentaNYL/PF 50MCG/1 ML 2ML syringe ONE (12:26)
[2023-06-26] MEDS ORDERED: midazolam 1 mg/ML 2ml injection ONE (12:26)
[2023-06-26] MEDS ORDERED: labetalol 20mg/4ml (5mg/ml) syringe IV PRN (12:30)
[2023-06-26] MEDS ORDERED: HYDROmorphone/PF 0.2 MG/ML SYRINGE IV PRN ×2 (12:30)
[2023-06-26] MEDS ORDERED: proCHLORperazine 10 MG/2 ml inj IV PRN (12:30)
[2023-06-26] MEDS ORDERED: ketorolac trometh. 30mg/ml inj. IV ONE (12:30)
[2023-06-26] MEDS ORDERED: ondansetron/PF 4mg/2ml inj IV PRN ×2 (12:30→13:30)
[2023-06-26] MEDS ORDERED: morphine 4 MG/ML inj SYRINge IV PRN (12:30)
[2023-06-26] MEDS ORDERED: acetaminophen 1,000mg/100ml IV 100 ML IV PRN (12:30)
[2023-06-26] MEDS ORDERED: ringers solution, lacted 1,000 ML IV SCH (12:30)
[2023-06-26] MEDS ORDERED: meperidine/PF 25mg/ml syringe IV PRN (12:30)
[2023-06-26] MEDS ORDERED: hydrALAZINE 20mg/ml inj. IV PRN (12:30)
[2023-06-26] MEDS ORDERED: morphine 2 MG/ML inj. syringe IV PRN (12:30)
[2023-06-26] MEDS ORDERED: BUPIVAcaine/dex-water/PF 7.5 mg/ml 2ml ampul ONE (12:31)
[2023-06-26] MEDS ORDERED: propofol inj 20 ML IV ONE ×5 (13:25→14:35)
[2023-06-26] MEDS ORDERED: glycopyrrolate 0.2mg/ml inj ONE (13:25)
[2023-06-26] MEDS ORDERED: magnesium hydroxide 30ml (MOM) UD suspension PO PRN (13:30)
[2023-06-26] MEDS ORDERED: bisacodyl 10mg suppository rectal RC PRN (13:30)
[2023-06-26] MEDS ORDERED: diphenhydrAMINE 25mg capsule PO PRN ×2 (13:30)
[2023-06-26] MEDS ORDERED: HYDROmorphone 1 mg/ml syringe IV PRN (13:30)
[2023-06-26] MEDS ORDERED: traMADol 50MG tablet PO PRN (13:30)
[2023-06-26] MEDS ORDERED: loratadine 10mg tablet PO PRN (13:30)
[2023-06-26] MEDS ORDERED: oxyCODONE IR 5mg (immed. release) tablet PO PRN (13:30)
[2023-06-26] MEDS ORDERED: HYDROmorphone inj. 0.5 MG/0.5 ML DISP.SYRIN IV PRN (13:30)
[2023-06-26] MEDS ORDERED: acetaminophen 325mg tablet PO PRN (13:30)
[2023-06-26] MEDS ORDERED: hydrOXYzine 25 MG tablet PO PRN (13:30)
[2023-06-26] MEDS ORDERED: naloxone 0.4 mg/ml inj IV PRN (13:30)
[2023-06-26] MEDS ORDERED: HYDROcodone/acetaminophen 10/325mg tab PO PRN ×2 (13:30)
[2023-06-26] MEDS: acetaminophen 325mg tablet PO SCH ×2 (14:00→20:59)
[2023-06-26] MEDS ORDERED: ROPIVAcaine 0.5% (5mg/ml) 30ml vial ONE (14:01)
[2023-06-26] MEDS ORDERED: ROPIVAcaine 0.5% (5mg/ml) 30ml vial IJ ONE (14:04)
[2023-06-26] MEDS ORDERED: ePHEDrine 50MG/ML INJ. ONE (14:35)
--- NOTE | 2023-06-26 15:18 | NUR ---
Received from OR via , accompanied by Anesthesiologist DR PADILLA and report given by Anesthesiolgist. VSS. MASK ON 7 LITERS. IV IN LAC 20G INTACT. F/C. LR AT 100ML/HR.LEFT LEG DRSSSING WITH WRAP AND POWDER PACK.
[2023-06-26] MEDS: ceFAZolin/D5W- 1GM premix 50 ML IV SCH ×2 (16:30→23:40)
--- NOTE | 2023-06-26 17:50 | NUR ---
Patient arrived to the floor via hospital bed. Patient was placed on post op vitals. Patient was given water and jello. Dinner tray ordered. Patient was oriented to the room, call light in place rails up x2.
--- NOTE | 2023-06-26 17:58 | NUR ---
PATIENT MEETS DISCHARGE CRITERIA. VSS. ON ROOM AIR. TOOK PATIENT TO HIS ROOM, LOWERED THE BED GAVE HIM HIS CALL LIGHT AND STARTED VITALS. FREDY ARITA AT BEDSIDE Addendum: 06/26/23 at 1811 by Mary Kay Royal RN Amended: Links added.
--- NOTE | 2023-06-26 18:22 | NUR ---
Problems reprioritized. Patient report given, questions answered & plan of care reviewed with Russell DANIEL.
--- NOTE | 2023-06-26 19:00 | NUR ---
CHANGING POWDER PACKS Q 2H
[2023-06-26] MEDS ORDERED: vancomycin/NS 1 GM ADD-VANTAGE 250 ML IV SCH (20:00)
[2023-06-26] MEDS ORDERED: non-formulary drug (Acetaminophen (Acetaminophen ER) 1 TAB) PO SCH (20:00)
[2023-06-26] MEDS: potassium cl 20mEq in 1/2 NS 1,000 ML IV SCH ×2 (20:50→21:30)
[2023-06-26] MEDS ORDERED: sennosides 8.6mg tablet PO SCH (21:00)
[2023-06-26] MEDS: oxyCODONE IR 5mg (immed. release) tablet PO PRN (23:19)
[2023-06-27] MEDS: acetaminophen 325mg tablet PO SCH ×2 (02:00→07:21)
[2023-06-27 06:00] VITALS: BP 104/55; PULSE 66; RESP 18; TEMP 97.7; O2SAT 97
[2023-06-27] MEDS: potassium cl 20mEq in 1/2 NS 1,000 ML IV SCH ×2 (06:05→13:29)
--- NOTE | 2023-06-27 06:30 | NUR ---
Problems reprioritized. Patient report given, questions answered & plan of care reviewed with SHARLA. Addendum: 06/27/23 at 0646 by Saurav Nails RN Amended: Links added.
[2023-06-27] MEDS: oxyCODONE IR 5mg (immed. release) tablet PO PRN ×2 (07:20→11:47)
[2023-06-27 07:30] VITALS: RESP 18
[2023-06-27] MEDS ORDERED: montelukast 10mg tablet PO SCH (08:00)
[2023-06-27] MEDS ORDERED: ferrous sulfate 325mg tablet PO SCH (08:00)
[2023-06-27] MEDS ORDERED: aspirin 325mg tablet PO SCH (08:30)
[2023-06-27 09:50] LABS: BASOPHILS % (AUTO) 0 % (0-1); EOSINOPHILS % (AUTO) 0 % (0-6); HEMATOCRIT 40.9 % (42.0-52.0); HEMOGLOBIN 14.1 g/dl (14.0-17.9); LYMPHOCYTES # (AUTO) 1.5 X10'3 (1.1-4.8); LYMPHOCYTES % (AUTO) 12.2 % (21-51); MEAN CORPUSCULAR HEMOGLOBIN 30.5 PG (27.0-31.0); MEAN CORPUSCULAR HGB CONC 34.4 g/dL (33.0-36.5); MEAN CORPUSCULAR VOLUME 88.8 FL (78-98); MEAN PLATELET VOLUME 8.8 FL (7.4-10.4); MONOCYTES # (AUTO) 0.8 X10'3 (0-0.9); MONOCYTES % (AUTO) 6.3 % (2-12); NEUTROPHILS # (AUTO) 9.9 X10'3 (1.8-7.7); NEUTROPHILS % (AUTO) 81.5 % (42-75); PLATELET COUNT 171 X10'3 (140-440); RED BLOOD COUNT 4.61 X10'6 (4.70-6.10); RED CELL DISTRIBUTION WIDTH 13.2 % (11.5-14.5); WHITE BLOOD COUNT 12.1 X10'3 (4.5-11.0)
[2023-06-27 10:00] VITALS: BP 117/54; PULSE 72; RESP 16; TEMP 97.9; O2SAT 96
[2023-06-27 10:09] LABS: ANION GAP 6 (8-16); CHLORIDE 103 MMOL/L (99-107); POTASSIUM 3.8 MMOL/L (3.5-5.1); SODIUM 135 MMOL/L (135-145); TOTAL CARBON DIOXIDE 25.7 MMOL/L (24-32)
--- NOTE | 2023-06-27 11:20 | NUR ---
Joint surgery consult: Pt s/p L knee surgery this admit per EMR. Pt unable to be seen for in-person high protein diet ed at this time due to staffing. Written high protein diet ed w/ ITALO contact information mailed to pt home address in EMR. Addendum: 06/27/23 at [address] Amended: Links added.
[2023-06-27 12:50] VITALS: RESP 18
[2023-06-28] MEDS ORDERED: acetaminophen 325mg tablet PO PRN (13:30)
== END 2023-06-27 16:34 | disposition home or self-care (01) | DRG 326 ==
LOC: PAS IN 08:54 → ORTHO 4S 17:51
PROVIDERS: ADMIT Orthopaedic Surgery; ATTEND Orthopaedic Surgery
PROC: 8E0Y0CZ Robotic Assisted Procedure of Lower Extremity, Open Approach (ICD-10-PCS; 2023-06-26)
PROC: 8E0YXBZ Computer Assisted Procedure of Lower Extremity (ICD-10-PCS; 2023-06-26)
PROC: 0SRD0J9 Replacement of Left Knee Joint with Synthetic Substitute, Cemented, Open Approach (ICD-10-PCS; principal; 2023-06-26 12:31)
DX: M17.12 Unilateral primary osteoarthritis, left knee (principal); E66.9 Obesity, unspecified; M21.162 Varus deformity, not elsewhere classified, left knee; Z68.41 Body mass index [BMI] 40.0-44.9, adult; F41.9 Anxiety disorder, unspecified; Z87.01 Personal history of pneumonia (recurrent)
CPT/HCPCS: 20985; 27447; S2900; 36415; 80051; 80053; 82948; 85025; 87081; 97110; 97116; 97161; A4215; A7000; C1713; C1758; C1776; G0378; J0131; J0690; J1170; J1885; J2175; J2250; J2270; J2704; J2795; J3010; J3370; J3480; J3490; J7120